=== PATIENT | male | born 1955 | race Hispanic/Latino ===

== ENCOUNTER 2017-10-11 10:35 | Emergency (ER) | payer BC, OTHER ==
[~2017-10-11 10:35] MED LIST: DILT180C51 PO; DRON400T2 PO; DULA0.75 SQ; FERR325T22 PO; METF10004 PO; METO25TA6 PO; RIVA20TA PO; Simvastatin PO
[2017-10-11 11:36] LABS: BASOPHILS % (AUTO) 0.9 % (0.0-5.0); EOSINOPHILS % (AUTO) 2.5 % (0.0-8.0); HEMATOCRIT 38.1 % (42-54); LYMPHOCYTES % (AUTO) 21.5 % (21.0-51.0); MEAN CORPUSCULAR HEMOGLOBIN 28.2 pg (27.0-33.0); MEAN CORPUSCULAR HGB CONC 33.8 g/dL (32.0-36.0); MEAN CORPUSCULAR VOLUME 83.4 fL (79-99); MONOCYTES % (AUTO) 6.4 % (3.0-13.0); NEUTROPHILS % (AUTO) 68.7 % (40.0-77.0); PLATELET COUNT (AUTO) 176 K/uL (130-400); RED BLOOD CELL COUNT(AUTO) 4.57 MIL/uL (4.50-6.20); RED CELL DISTRIBUTION WIDTH 14.9 % (11.0-15.5); WHITE BLOOD COUNT (AUTO) 8.7 K/uL (4.8-10.8)
[2017-10-11 11:47] LABS: INR 1.22 (0.85-1.15); PARTIAL THROMBOPLASTIN TIME 34.9 SEC (26.3-35.5); PROTHROMBIN TIME 12.8 SEC (9.6-11.6)
== END 2017-10-11 12:05 | disposition home or self-care (01) ==
LOC: EDH 10:35
DX: R04.0 Epistaxis (principal); I10 Essential (primary) hypertension; I48.91 Unspecified atrial fibrillation; E11.9 Type 2 diabetes mellitus without complications; E78.5 Hyperlipidemia, unspecified; Z85.46 Personal history of malignant neoplasm of prostate
CPT/HCPCS: 36415; 85025; 85610; 85730

== ENCOUNTER → 2018-02-09 | Outpatient (CLI) | payer BC ==
[~2018-02-09] MED LIST changes: +METF-446 PO; -METF10004 PO
== END | disposition home or self-care (01) ==
LOC: SHCH 15:21
PROVIDERS: ATTEND Internal Medicine Cardiovascular Disease
DX: I34.0 Nonrheumatic mitral (valve) insufficiency (principal)
CPT/HCPCS: 93306

== ENCOUNTER 2018-03-26 07:21 | Emergency (ER) | payer BC ==
[2018-03-26] MEDS ORDERED: OXYMETAZOLINE HCL SPRAY 15 ML BOTTLE ONE (07:39)
[2018-03-26 08:06] LABS: BASOPHILS % (AUTO) 1.2 % (0.0-5.0); EOSINOPHILS % (AUTO) 2.4 % (0.0-8.0); LYMPHOCYTES % (AUTO) 20.2 % (21.0-51.0); MEAN CORPUSCULAR HEMOGLOBIN 27.2 pg (27.0-33.0); MEAN CORPUSCULAR HGB CONC 32.6 g/dL (32.0-36.0); MEAN CORPUSCULAR VOLUME 83.3 fL (79-99); MONOCYTES % (AUTO) 6.1 % (3.0-13.0); NEUTROPHILS % (AUTO) 70.1 % (40.0-77.0); NUCLEATED RED BLOOD CELLS 0.2 % (0.0-0.19); PLATELET COUNT (AUTO) 163 K/uL (130-400); RED BLOOD CELL COUNT(AUTO) 4.68 MIL/uL (4.50-6.20); RED CELL DISTRIBUTION WIDTH 14.9 % (11.0-15.5); WHITE BLOOD COUNT (AUTO) 9.1 K/uL (4.8-10.8)
[2018-03-26 08:14] LABS: CREATININE 1.5 mg/dL (0.5-1.5); POTASSIUM 3.9 mmol/L (3.5-5.1)
[2018-03-26 08:19] LABS: ALBUMIN 3.7 g/dL (3.5-5.0); BILIRUBIN,TOTAL 0.5 mg/dL (0.2-1.0); INR 1.49 (0.85-1.15); PARTIAL THROMBOPLASTIN TIME 43.6 SEC (26.3-35.5); PROTHROMBIN TIME 15.5 SEC (9.6-11.6); TOTAL PROTEIN, SERUM 8.2 g/dL (6.0-8.3)
== END 2018-03-26 09:35 | disposition home or self-care (01) ==
LOC: EDH 07:21
DX: R04.0 Epistaxis (principal); E11.65 Type 2 diabetes mellitus with hyperglycemia; D64.9 Anemia, unspecified; I10 Essential (primary) hypertension; D68.9 Coagulation defect, unspecified
CPT/HCPCS: 36415; 80053; 85025; 85610; 85730

== ENCOUNTER 2018-12-29 07:30 | Inpatient (IN) | payer BC | END 2019-01-01 20:45 | disposition home or self-care (01) | LOC: DAH 07:30 → 3CH 07:31 | PROC: 0VB08ZZ Excision of Prostate, Via Natural or Artificial Opening Endoscopic (ICD-10-PCS; principal; 2018-12-29 12:27) | PROC: 0T5B8ZZ Destruction of Bladder, Via Natural or Artificial Opening Endoscopic (ICD-10-PCS; 2018-12-29 12:27) | DX: C61 Malignant neoplasm of prostate (principal); T83.091A Other mechanical complication of indwelling urethral catheter, initial encounter; R33.8 Other retention of urine; N47.1 Phimosis; R31.9 Hematuria, unspecified ==

== ENCOUNTER 2020-02-26 12:29 | Inpatient (IN) | payer BC ==
[~2020-02-26] VITALS: Ht 167.6 cm; Wt 89.8 kg
[~2020-02-26 12:29] MED LIST changes: +FURO40TA5 PO; -METO25TA6 PO; +METO37.5 PO; +SIMV40TA59 PO; -Simvastatin PO; +TAMS-1 PO
[2020-02-26 13:02] LABS: BASOPHILS % (AUTO) 0.4 % (0.0-5.0); EOSINOPHILS % (AUTO) 0.1 % (0.0-8.0); HEMATOCRIT 42.1 % (42-54); LYMPHOCYTES % (AUTO) 6.8 % (21.0-51.0); MEAN CORPUSCULAR HGB CONC 33.3 g/dL (32.0-36.0); MEAN CORPUSCULAR VOLUME 84.2 fL (79-99); MONOCYTES % (AUTO) 2.5 % (3.0-13.0); NEUTROPHILS % (AUTO) 89.7 % (40.0-77.0); PLATELET COUNT (AUTO) 164 K/uL (130-400); WHITE BLOOD COUNT (AUTO) 11.2 K/uL (4.8-10.8)
[2020-02-26 13:16] LABS: CREATININE 2.2 mg/dL (0.5-1.5); POTASSIUM 4.8 mmol/L (3.5-5.1)
[2020-02-26] MEDS ORDERED: LIDOCAINE HCL 2% VISCOUS 15 ML UDCUP ONE (13:21)
[2020-02-26] MEDS ORDERED: MAG HYDROX/AL HYDROX/SIMETH ES 30 ML SUSP UDCUP ONE (13:22)
[2020-02-26 13:25] LABS: ALBUMIN 3.9 g/dL (3.5-5.0); BILIRUBIN,TOTAL 1.2 mg/dL (0.2-1.0); TOTAL PROTEIN, SERUM 8.6 g/dL (6.0-8.3)
[2020-02-26] MEDS ORDERED: ASPIRIN 325MG EC TAB 325 MG TABLET.DR PO ONE (14:12)
[2020-02-26] MEDS ORDERED: FUROSEMIDE 10 MG/ML 4ML VIAL ONE (15:57)
[2020-02-26] MEDS ORDERED: DEXTROSE 50%-WATER 50 ML DISP.SYRIN IV PRN (16:15)
[2020-02-26] MEDS ORDERED: GLUCAGON 1MG KIT 1 MG ML IM PRN (16:15)
[2020-02-26] MEDS ORDERED: MAG HYDROX/AL HYDROX/SIMETH ES 30 ML SUSP UDCUP PO PRN (16:15)
[2020-02-26] MEDS ORDERED: ONDANSETRON HCL 4 MG/2 ML VIAL IVP PRN (16:15)
[2020-02-26] MEDS ORDERED: ACETAMINOPHEN 325 MG TAB PO PRN (16:15)
[2020-02-26] MEDS: CLOPIDOGREL BISULFATE 75 MG TAB PO SCH (16:30)
[2020-02-26] MEDS: NITROGLYCERIN 1GM/1 INCH PACKET TD SCH (16:30)
[2020-02-26] MEDS: INSULIN HUMULIN R 100 UNIT/ML 3ML SQ SCH ×2 (16:30→21:04)
[2020-02-26] MEDS ORDERED: CLOPIDOGREL BISULFATE 75 MG TAB ONE (17:47)
[2020-02-26] MEDS ORDERED: NITROGLYCERIN 1GM/1 INCH PACKET TD ONE (17:48)
[2020-02-26 18:45] VITALS: BP 118/76
--- NOTE | 2020-02-26 18:45 | NUR ---
RECEIVED PATIENT FROM ER, PATIENT AT THIS TIME DENIES ANY CHEST PAIN OR SHORTNESS OF BREATH. V/S STABLE. ORIENTED TO ROOM, AT BEDSIDE
[2020-02-26] MEDS: METOPROLOL TARTRATE 25 MG TAB PO SCH (20:13)
[2020-02-26] MEDS: SIMVASTATIN 10 MG TABLET PO SCH (20:13)
[2020-02-26] MEDS: DRONEDARONE HYDROCHLORIDE 400 MG TABLET PO SCH (21:00)
[2020-02-26] MEDS ORDERED: METOPROLOL TARTRATE 25 MG TAB PO SCH (21:00)
[2020-02-26] MEDS ORDERED: APIX5TAB PO (21:30)
[2020-02-26] MEDS ORDERED: ALLO100T PO (21:30)
[2020-02-26] MEDS ORDERED: DILT180C86 PO (21:30)
[2020-02-26] MEDS ORDERED: CHOL200013 PO (21:30)
[2020-02-26] MEDS ORDERED: SIMV5TAB58 PO (21:30)
[2020-02-26 23:52] VITALS: BP 116/65
[2020-02-27] MEDS: NITROGLYCERIN 1GM/1 INCH PACKET TD SCH ×3 (00:05→17:20)
[2020-02-27 03:54] LABS: APPEARANCE,URINE Clear (CLEAR); BILIRUBIN,URINE Negative (NEGATIVE); COLOR,URINE Yellow (YELLOW); GLUCOSE, URINE (UA) Negative (NEGATIVE); KETONES,URINE Negative (NEGATIVE); LEUKOCYTE ESTERASE ,URINE Negative (NEGATIVE); NITRATE,URINE Negative (NEGATIVE); OCCULT BLOOD,URINE Negative (NEGATIVE); PROTEIN,URINE Negative (NEGATIVE)
[2020-02-27 03:57] LABS: CREATININE,URINE RANDOM 48 mg/dL (30-135); SODIUM,URINE RANDOM 47 mmol/l (40-220)
[2020-02-27 04:02] LABS: BACTERIA,URINE None Seen /HPF (None Seen); RBC,URINE None Seen /HPF (0-1); WBC,URINE None Seen /HPF (0-1)
[2020-02-27 04:22] VITALS: BP 118/72
[2020-02-27] MEDS ORDERED: HEPARIN SODIUM 5000UNIT/ML 1ML VIAL SQ SCH (04:45)
[2020-02-27 05:22] LABS: BASOPHILS % (AUTO) 0.6 % (0.0-5.0); EOSINOPHILS % (AUTO) 0.4 % (0.0-8.0); HEMATOCRIT 38.2 % (42-54); LYMPHOCYTES % (AUTO) 16.5 % (21.0-51.0); MEAN CORPUSCULAR HEMOGLOBIN 27.5 pg (27.0-33.0); MEAN CORPUSCULAR HGB CONC 33.2 g/dL (32.0-36.0); MEAN CORPUSCULAR VOLUME 82.7 fL (79-99); MONOCYTES % (AUTO) 6.8 % (3.0-13.0); NEUTROPHILS % (AUTO) 75.5 % (40.0-77.0); PLATELET COUNT (AUTO) 151 K/uL (130-400); RED BLOOD CELL COUNT(AUTO) 4.62 MIL/uL (4.50-6.20); RED CELL DISTRIBUTION WIDTH 16.7 % (11.0-15.5); WHITE BLOOD COUNT (AUTO) 9.6 K/uL (4.8-10.8)
[2020-02-27 05:53] LABS: HEMOGLOBIN A1C 6.6 % (4.0-6.0)
[2020-02-27 05:59] LABS: CREATININE 1.9 mg/dL (0.5-1.5); POTASSIUM 3.6 mmol/L (3.5-5.1); THYROID STIMULATING HORMONE 4.13 uIU/mL (0.36-3.74)
[2020-02-27] MEDS: INSULIN HUMULIN R 100 UNIT/ML 3ML SQ SCH ×4 (06:14→20:08)
[2020-02-27 07:56] VITALS: BP 108/71
[2020-02-27] MEDS ORDERED: ENOXAPARIN SODIUM 30 MG/0.3 ML SQ SCH (09:00)
[2020-02-27] MEDS ORDERED: ASPIRIN 81MG TAB.CHEW PO SCH (09:00)
[2020-02-27] MEDS: DRONEDARONE HYDROCHLORIDE 400 MG TABLET PO SCH (09:11)
[2020-02-27] MEDS: ASPIRIN 325 MG TABLET PO SCH (09:12)
[2020-02-27] MEDS: DILTIAZEM HCL 180 MG CAP.SR.24H PO SCH (09:12)
[2020-02-27] MEDS: CLOPIDOGREL BISULFATE 75 MG TAB PO SCH (09:12)
[2020-02-27] MEDS: PANTOPRAZOLE SODIUM 40 MG TABLET.DR PO SCH (09:12)
[2020-02-27] MEDS: METOPROLOL TARTRATE 25 MG TAB PO SCH ×2 (09:12→20:11)
[2020-02-27 11:26] VITALS: BP 117/83
--- NOTE | 2020-02-27 15:22 | NUR ---
cm note met with patient and states resides with spouse, independent with adls and ambulation. no dme. pt drives. dc plan is back home at [place]. states no dc needs. Addendum: 02/27/20 at 1525 by BINTA LOPEZ CM Amended: Links added.
[2020-02-27 15:28] VITALS: BP 96/69
[2020-02-27 20:00] VITALS: BP 120/71
[2020-02-27] MEDS: SIMVASTATIN 10 MG TABLET PO SCH (20:10)
[2020-02-27 23:49] VITALS: BP 108/71
[2020-02-28] VITALS (11 sets, daily range): BP systolic 114–134; BP diastolic 66–91
[2020-02-28] MEDS: NITROGLYCERIN 1GM/1 INCH PACKET TD SCH ×3 (00:29→19:24)
[2020-02-28 05:09] LABS: HEMATOCRIT 37.5 % (42-54); MEAN CORPUSCULAR HEMOGLOBIN 27.5 pg (27.0-33.0); MEAN CORPUSCULAR HGB CONC 33.1 g/dL (32.0-36.0); MEAN CORPUSCULAR VOLUME 83.1 fL (79-99); RED BLOOD CELL COUNT(AUTO) 4.51 MIL/uL (4.50-6.20); RED CELL DISTRIBUTION WIDTH 17.2 % (11.0-15.5); WHITE BLOOD COUNT (AUTO) 6.5 K/uL (4.8-10.8)
[2020-02-28 05:20] LABS: INR 1.39 (0.85-1.15); PARTIAL THROMBOPLASTIN TIME 30.8 SEC (26.3-35.5); PROTHROMBIN TIME 14.8 SEC (9.6-11.6)
[2020-02-28 05:27] LABS: ALBUMIN 3.4 g/dL (3.5-5.0); BILIRUBIN,TOTAL 0.9 mg/dL (0.2-1.0); CREATININE 1.7 mg/dL (0.5-1.5); POTASSIUM 3.8 mmol/L (3.5-5.1); TOTAL PROTEIN, SERUM 7.3 g/dL (6.0-8.3)
[2020-02-28] MEDS: INSULIN HUMULIN R 100 UNIT/ML 3ML SQ SCH ×4 (06:07→21:00)
--- NOTE | 2020-02-28 08:00 | NUR ---
AOO X 3 REVIEW PLAN OF CARE. DENIES ANY CHEST PAIN NPO STATUS , PENDING A HEART CATH. TODAY. BED LEVEL DOWN , AND REVIEW CALL LIGHT IN REACH. FOR ANY CONCERNS .TELE MONITOR ON . .
--- NOTE | 2020-02-28 10:00 | NUR ---
TO HAND ENGRAVER, VIA BED , STAFF AT THE BEDSIDE, REVIEW CONSENT . AND PROCEDURE, AT PRESENT DENIES ANY CHEST PAIN.
[2020-02-28] MEDS: METOPROLOL TARTRATE 25 MG TAB PO SCH ×2 (10:02→21:17)
[2020-02-28] MEDS: CLOPIDOGREL BISULFATE 75 MG TAB PO SCH (10:02)
[2020-02-28] MEDS: DILTIAZEM HCL 180 MG CAP.SR.24H PO SCH (10:02)
[2020-02-28] MEDS: PANTOPRAZOLE SODIUM 40 MG TABLET.DR PO SCH (10:02)
[2020-02-28] MEDS: ASPIRIN 325 MG TABLET PO SCH (10:05)
[2020-02-28] MEDS ORDERED: HEPARIN SODIUM 1000UNIT/ML 10ML VIAL ONE (10:40)
[2020-02-28] MEDS ORDERED: IOHEXOL 350 MG/ML 100ML INFUS..BTL IV ONE (10:40)
[2020-02-28] MEDS ORDERED: MIDAZOLAM HCL 1 MG/ML 2ML VIAL ONE (10:41)
[2020-02-28] MEDS ORDERED: LIDOCAINE HCL 2% 20ML ONE (10:41)
--- NOTE | 2020-02-28 12:00 | NUR ---
PT BACK FROM [facility], PT . AAO X 3 PT FLAT POSITION. . RT. LT GROIN CHECK FOR HEMATOMA . OR DISCOLORATION . RT . LT LEG WARM TO TOUCH, WITH GOOD PULSES MONITOR TO FEET, RT GROIN HAS A SM CLOSURE DRSG . SOFT AROUND CATH SITE ,FREE FROM . BLEEDING LT GROIN. SOFT TO TOUCH , NOTED NO HEMATOMA . OR BLEEDING .REVIEW DR. ORDERS . POSTOP V/S STARTED AND CALL LIGHT IN REACH.. DENIES ANY CHEST PAIN. OR DISCOMFORT. . AT THE BEDSIDE, QUESTION REVIEW..
--- NOTE | 2020-02-28 13:00 | NUR ---
MONITOR LOWER LEGS , RT AND LT GROIN, NOTED NO HEMATOMA OR BLEEDING WARM , GOOD CAPILLARIES REFILLS. CALL LIGHT IN REACH , DENIES ANY CHEST PAIN POSTOP V/S . MONITOR .
--- NOTE | 2020-02-28 15:00 | NUR ---
PT . BEDREST X 3 HRS COMPLETED ,WITH NO C/O OF CHEST PAIN, POSTOP V/S MONITOR , WITH PULSES TO HIS LOWER EXTREMITES / TOLERATE WELL
--- NOTE | 2020-02-28 19:00 | NUR ---
ACTIVITY Up ad nicole,left groin remains soft,no hamatoma noted.Pedal pulses strong. Addendum: 02/29/20 at 0342 by MILE SOLIZ RN RN left and right.
[2020-02-28 20:20] LABS: APPEARANCE,URINE Clear (CLEAR); BILIRUBIN,URINE Negative (NEGATIVE); COLOR,URINE Yellow (YELLOW); GLUCOSE, URINE (UA) Negative (NEGATIVE); KETONES,URINE Trace mg/dL (NEGATIVE); LEUKOCYTE ESTERASE ,URINE Trace (NEGATIVE); NITRATE,URINE Negative (NEGATIVE); OCCULT BLOOD,URINE Negative (NEGATIVE); PH,URINE 5.5 (5.0-8.0); PROTEIN,URINE Trace mg/dL (NEGATIVE)
[2020-02-28 21:01] LABS: BACTERIA,URINE Rare /HPF (None Seen); RBC,URINE None Seen /HPF (0-1); SQUAMOUS EPITHELIAL CELL,UR None Seen /HPF (0-2); WBC,URINE 0-1 /HPF (0-1)
[2020-02-28] MEDS: SIMVASTATIN 10 MG TABLET PO SCH (21:17)
[2020-02-29] MEDS: NITROGLYCERIN 1GM/1 INCH PACKET TD SCH ×2 (00:04→10:20)
[2020-02-29 04:06] VITALS: BP 123/79
--- NOTE | 2020-02-29 04:07 | NUR ---
STATUS Slept fairly,denies chest pain or sob.Rt groin dressing soft,no hematoma,pedal pulses palpable.
--- NOTE | 2020-02-29 04:29 | NUR ---
PFT PFT being done. Addendum: 02/29/20 at 0644 by MILE SOLIZ RN RN TIM MONSON done
[2020-02-29 05:03] LABS: HEMATOCRIT 40.4 % (42-54); MEAN CORPUSCULAR HEMOGLOBIN 27.4 pg (27.0-33.0); MEAN CORPUSCULAR HGB CONC 32.7 g/dL (32.0-36.0); RED BLOOD CELL COUNT(AUTO) 4.81 MIL/uL (4.50-6.20); RED CELL DISTRIBUTION WIDTH 17.3 % (11.0-15.5); WHITE BLOOD COUNT (AUTO) 7.1 K/uL (4.8-10.8)
[2020-02-29 05:19] LABS: CREATININE 1.4 mg/dL (0.5-1.5); MAGNESIUM 2.1 mg/dL (1.80-2.40); POTASSIUM 4.1 mmol/L (3.5-5.1)
[2020-02-29] MEDS: INSULIN HUMULIN R 100 UNIT/ML 3ML SQ SCH ×2 (06:00→11:16)
[2020-02-29 06:11] LABS: HEPATITIS B CORE IGM Negative (Negative)
[2020-02-29] MEDS ORDERED: ASPI-1197 PO (06:19)
[2020-02-29] MEDS ORDERED: ROSU40TA21 PO (06:19)
[2020-02-29] MEDS ORDERED: EZET10TA48 PO (06:19)
[2020-02-29] MEDS ORDERED: ISOS30TA6 PO (06:19)
[2020-02-29] MEDS ORDERED: CLOP75TA14 PO (06:19)
--- NOTE | 2020-02-29 06:42 | NUR ---
MOVED PT MOVED TO 419
--- NOTE | 2020-02-29 06:43 | NUR ---
MD Dr ERAZO came and talked to pt.Pt wants 2nd opinion with Dr Bosch.Dr Erazo said he will call him and call back to update the nurses in am.
[2020-02-29 07:36] VITALS: BP 125/83
[2020-02-29] MEDS: DILTIAZEM HCL 180 MG CAP.SR.24H PO SCH (10:18)
[2020-02-29] MEDS: ASPIRIN 325 MG TABLET PO SCH (10:19)
[2020-02-29] MEDS: PANTOPRAZOLE SODIUM 40 MG TABLET.DR PO SCH (10:19)
[2020-02-29] MEDS: CLOPIDOGREL BISULFATE 75 MG TAB PO SCH (10:19)
[2020-02-29] MEDS: METOPROLOL TARTRATE 25 MG TAB PO SCH (10:19)
[2020-02-29 11:26] VITALS: BP 121/74
[2020-02-29 14:11] LABS: HEPATITIS Bs ANTIGEN SCREEN P Negative (Negative)
--- NOTE | 2020-02-29 14:53 | NUR ---
DISCHARGE INSTRUCTIONS DISCHARGE INSTRUCTIONS GIVEN TO PATIENT, VERBALIZED UNDERSTANDING. IV DISCONTINUED, TELEPAK DC'D.
== END 2020-02-29 13:37 | disposition home or self-care (01) | DRG 286 ==
LOC: EDH 12:29 → EDHIP 16:07 → 4BH 18:29 → 4CH 02-29 06:02
PROVIDERS: ADMIT Hospitalist; ATTEND Hospitalist
PROC: 4A023N8 Measurement of Cardiac Sampling and Pressure, Bilateral, Percutaneous Approach (ICD-10-PCS; principal; 2020-02-28)
PROC: B2111ZZ Fluoroscopy of Multiple Coronary Arteries using Low Osmolar Contrast (ICD-10-PCS; 2020-02-28)
DX: I25.110 Atherosclerotic heart disease of native coronary artery with unstable angina pectoris (principal); I50.33 Acute on chronic diastolic (congestive) heart failure; E87.1 Hypo-osmolality and hyponatremia; I13.0 Hypertensive heart and chronic kidney disease with heart failure and stage 1 through stage 4 chronic kidney disease, or unspecified chronic kidney disease; N18.30 Chronic kidney disease, stage 3 unspecified; I34.0 Nonrheumatic mitral (valve) insufficiency; D64.9 Anemia, unspecified; E11.22 Type 2 diabetes mellitus with diabetic chronic kidney disease; E78.5 Hyperlipidemia, unspecified; F41.9 Anxiety disorder, unspecified; I05.2 Rheumatic mitral stenosis with insufficiency; I27.20 Pulmonary hypertension, unspecified; I48.0 Paroxysmal atrial fibrillation; K44.9 Diaphragmatic hernia without obstruction or gangrene; K57.30 Diverticulosis of large intestine without perforation or abscess without bleeding; M10.9 Gout, unspecified; Z79.01 Long term (current) use of anticoagulants; Z79.84 Long term (current) use of oral hypoglycemic drugs; Z79.899 Other long term (current) drug therapy; Z95.2 Presence of prosthetic heart valve; Z95.1 Presence of aortocoronary bypass graft; Z90.79 Acquired absence of other genital organ(s); Z85.46 Personal history of malignant neoplasm of prostate; Z82.49 Family history of ischemic heart disease and other diseases of the circulatory system; Z80.42 Family history of malignant neoplasm of prostate
CPT/HCPCS: 36415; 71045; 74176; 76705; 80048; 80053; 80061; 81001; 82570; 82948; 83036; 83690; 83735; 83880; 84300; 84443; 84484; 84540; 85025; 85027; 85610; 85730; 86705; 86706; 86717; 87340; 87350; 87520; 93005; 93306; 93356; 93460; 93880; 94010; 99291; C1760; C1769; C1894; G0378; J1644; J1815; J1940; J2250; J3490; Q9967

== ENCOUNTER 2021-01-19 11:13 | Emergency (ER) | payer BC, MEDICARE ==
[~2021-01-19] VITALS: Ht 167.6 cm; Wt 75.3 kg
[2021-01-19 11:13] VITALS: BP 115/65
[~2021-01-19 11:13] MED LIST changes: +ALLO100T PO; +APIX5TAB PO; +ASPI-1197 PO; +CHOL200013 PO; +CLOP75TA14 PO; -DILT180C51 PO; -DRON400T2 PO; +EZET10TA48 PO; -FERR325T22 PO; +ISOS30TA92 PO; -RIVA20TA PO; +ROSU40TA21 PO; -SIMV40TA59 PO; -TAMS-1 PO
== END 2021-01-19 13:49 | disposition home or self-care (01) ==
LOC: EDH 11:13
DX: R04.0 Epistaxis (principal); E11.9 Type 2 diabetes mellitus without complications; I10 Essential (primary) hypertension; I48.91 Unspecified atrial fibrillation; Z79.01 Long term (current) use of anticoagulants; Z79.82 Long term (current) use of aspirin; Z79.84 Long term (current) use of oral hypoglycemic drugs; Z79.899 Other long term (current) drug therapy; Z90.79 Acquired absence of other genital organ(s)
CPT/HCPCS: 99281